=== PATIENT | female | born 1950 | race Caucasian/White ===

== ENCOUNTER → 2017-02-03 | Outpatient (CLI) | payer BC | END | disposition home or self-care (01) | DX: Z53.9 Procedure and treatment not carried out, unspecified reason (principal) ==

== ENCOUNTER → 2017-02-09 | Outpatient (CLI) | payer BC ==
[2017-02-09 15:23] LABS: EKG EKG PERFORMED
[2017-02-09 16:00] LABS: Basophils # (A) 0.1 k/uL (0-0.2); Basophils % (A) 1 %; CH 30.8; CHCM 34.9; Eosinophils # (A) 0.5 k/uL (0-0.7); Eosinophils % (A) 5 %; HCT 46.2 % (34.0-46.0); HDW 2.68; HGB 15.7 gm/dL (11.4-16.0); Luc # (Auto) 0.22; Luc % (Auto) 2; Lymphocytes # (A) 2.7 k/uL (1.0-4.8); Lymphocytes % (A) 25 %; MCH 30.1 pg (25.0-35.0); MCHC 33.9 g/dL (31.0-37.0); MCV 88.7 fL (80.0-100.0); Mean Platelet Volume 6.7; Monocytes # (A) 0.7 k/uL (0-1.0); Monocytes % (A) 6 %; Neutrophils # (A) 6.7 k/uL (1.3-7.7); Neutrophils % (A) 61 %; RBC 5.21 m/uL (3.80-5.40); RDW 13.5 % (11.5-15.5); WBC 10.9 k/uL (3.8-10.6); WBC (Perox) 10.62
[2017-02-09 16:14] LABS: Anion Gap 9 mmol/L; Blood Urea Nitrogen 20 mg/dL (7-17); Calcium 9.5 mg/dL (8.4-10.2); Carbon Dioxide 25 mmol/L (22-30); Chloride 104 mmol/L (98-107); Glucose 94 mg/dL (74-99); Non-African American GFR(MDRD) >60 (>60 ml/min/1.73 sqM); Potassium 4.2 mmol/L (3.5-5.1); Sodium 138 mmol/L (137-145)
== END | disposition home or self-care (01) ==
LOC: LABPAT 15:12
PROVIDERS: ATTEND Obstetrics & Gynecology
DX: Z01.810 Encounter for preprocedural cardiovascular examination (principal); Z01.812 Encounter for preprocedural laboratory examination
CPT/HCPCS: 80048; 85025; 86850; 86900; 86901; 93005

== ENCOUNTER 2017-02-18 07:24 | Day surgery (SDC) | payer BC ==
[2017-02-10 15:40] VITALS: BMI 28.3
[~2017-02-18 07:24] MED LIST: DEXAMETHASONE SOD PHOSPHATE 10 MG/ML 1 ML VIAL IV ONE; HYDROmorphone 1 MG/ML 1 ML SYRINGE IVP PRN; LIDOCAINE 1% 20 ML VIAL (10MG/ML) FOR IV START INTRADERMA PRN; ONDANSETRON 4 MG/2 ML VIAL IVP ONE; ceFAZolin 2 GM in SODIUM CHLORIDE 0.9% 100 ML IVPB ONE
--- NOTE | 2017-02-18 07:27 | P.HPOB ---
History of Present Illness H&P Date: 02/18/17 Chief Complaint: Mikey Vela has a grade II cystocele and is sched for an anterior repair of same. R/B/ A were reviewed in detail including risks to bladder/ureters, bleeding and infection. symptoms have progressively gotten worse for her over the last year and the prolpapse has become much more uncomfortable. we did discuss pessary placement but she would prefer a more permanent solution. all questions are answered for her at this time. Physical exam: Heart RRR, Lungs CTAB: abd soft, net +BS, ext without pain. pelvic exam as above. Ass: cystocele Plan Anterior repair Past Medical History Past Medical History: Hyperlipidemia, Hypertension Additional Past Medical History / Comment(s): varicose veins, hx kidney stone History of Any Multi-Drug Resistant Organisms: None Reported Past Surgical History: Orthopedic Surgery Additional Past Surgical History / Comment(s): cystoscopy for kidney stone, yen cataracts, end of index finger left hand reattached, surgery for rx left elbow Past Anesthesia/Blood Transfusion Reactions: No Reported Reaction Smoking Status: Never smoker - Past Family History Mother Family Medical History: No Reported History Medications and Allergies Home Medications Medication Instructions Recorded Confirmed Type Ascorbic Acid [Vitamin C] 500 mg PO DAILY 02/10/17 02/10/17 History Aspirin [Adult Low Dose Aspirin EC] 81 mg PO DAILY 02/10/17 02/10/17 History Atorvastatin [Lipitor] 40 mg PO HS 02/10/17 02/10/17 History Cholecalciferol [Vitamin D3] 5,000 unit PO DAILY 02/10/17 02/10/17 History Ubidecarenone [Co Q-10] 200 mg PO DAILY 02/10/17 02/10/17 History amLODIPine BESYLATE/BENAZEPRIL 1 cap PO DAILY 02/10/17 02/10/17 History [amLODIPine BESYLATE/BENAZEPRIL 10-20 mg] Allergies Allergy/AdvReac Type Severity Reaction Status Date / Time No Known Allergies Allergy Verified 02/10/17 15:31 Exam Osteopathic Statement: *. No significant issues noted on an osteopathic structural exam other than those noted in the History and Physical/Consult.
[2017-02-18] MEDS: LACTATED RINGERS 1,000 ML IV SCH ×2 (08:17→16:42)
[2017-02-18] MEDS ORDERED: MORPHINE SULFATE (PF) 0.3 MG/0.3 ML SYR ONE (09:28)
[2017-02-18] MEDS ORDERED: PROPOFOL 10 MG/ML 20 ML VIAL IV ONE (09:28)
[2017-02-18] MEDS ORDERED: fentaNYL (PF) 50 MCG/ML 2 ML AMP ONE (09:28)
[2017-02-18] MEDS ORDERED: LIDOCAINE 1% INJ 10MG/ML (20 ML MDV) ONE (09:28)
[2017-02-18] MEDS ORDERED: MIDAZOLAM 2 MG/2 ML VIAL ONE (09:28)
[2017-02-18] MEDS ORDERED: EPINEPHrine 1 MG in SODIUM CHLORIDE 0.9% 150 ML IV ONE (10:01)
[2017-02-18] MEDS ORDERED: LACTATED RINGERS 1,000 ML IV ONE ×2 (10:08→10:33)
[2017-02-18] MEDS ORDERED: KETOROLAC 30 MG/ML 1 ML VIAL IVP PRN ×2 (10:10→11:25)
[2017-02-18] MEDS ORDERED: SIMETHICONE 80 MG CHEWABLE PO PRN (10:10)
--- NOTE | 2017-02-18 10:15 | P.OP ---
Date of Procedure: 02/18/17 Preoperative Diagnosis: Vaginal prolapse Postoperative Diagnosis: Same Procedure(s) Performed: Anterior repair Anesthesia: ana KELLER Surgeon: Aashish Araujo Estimated Blood Loss (ml): 15 IV fluids (ml): 800 Urine output (ml): 15 Pathology: other (Vaginal mucosa) Condition: stable Disposition: floor Operative Findings: Grade 2 cystocele repaired Description of Procedure: Patient was taken to the operating suite where a spainal anesthetic was found be adequate. She was prepped and draped in normal sterile fashion placed in dorsal lithotomy position. Initially a speculum inserted in the vagina and the apex of the cystocele was identified and grasped between 2 Allis clamps dilute epinephrine solution was then injected subcuticularly to assist in hydrogen dissection and hemostasis. Once this was accomplished using a metastases scissors to undermine the tissue the cystocele was dissected up to approximately 170 below the urethra. Delineating the boundaries Allis clamps sharp and blunt dissection the cystocele was then done once this was accomplished cystocele was replaced in normal anatomical position and 4 interrupted Jesenia plication sutures were placed. Once this was accomplished excess vaginal close was trimmed off and the incision was closed with 0 Vicryl suture in a running locking fashion. Sponge, lap, needle counts were all correct 2. Once this was accomplished patient was taken to the recovery room in stable and satisfactory condition. Ramirez catheter was placed and vaginal packing was also placed. This was removed later tonight.
[2017-02-18] MEDS ORDERED: NALOXONE 0.4 MG/ML 1 ML VIAL IV PRN ×2 (11:03→11:25)
[2017-02-18] MEDS ORDERED: ONDANSETRON 4 MG/2 ML VIAL IVP PRN ×2 (11:03→11:25)
[2017-02-18] MEDS ORDERED: diphenhydrAMINE 50 MG/ML 1 ML VIAL IVP PRN (11:25)
[2017-02-18] MEDS: diphenhydrAMINE 50 MG/ML 1 ML VIAL IVP PRN (13:24)
[2017-02-18] MEDS: SENNOSIDES-DOCUSATE SODIUM 1 EACH TAB PO SCH (20:41)
[2017-02-18] MEDS ORDERED: ATORVASTATIN 40 MG TAB PO SCH (21:00)
[2017-02-19] MEDS: LACTATED RINGERS 1,000 ML IV SCH (01:55)
[2017-02-19] MEDS: diphenhydrAMINE 50 MG/ML 1 ML VIAL IVP PRN (01:57)
--- NOTE | 2017-02-19 08:09 | P.PN ---
Progress Note - Text Date:02/19 Time:710 Patient is status post ant repair. Patient seen this morning with VAS score of 2.c/o of pruritus, no c/o nausea/vomiting, comfortable and doing well today.
[2017-02-19] MEDS ORDERED: LISINOPRIL 20 MG TAB PO SCH (09:00)
[2017-02-19] MEDS ORDERED: ASPIRIN 81 MG PO SCH (09:00)
[2017-02-19] MEDS ORDERED: amLODIPine 10 MG TAB PO SCH (09:00)
--- NOTE | 2017-02-19 09:10 | P.DS ---
Providers Expected date of discharge: 02/19/17 Attending physician: Aashish Araujo Primary care physician: Stated None Hospital Course: Silas is doing very well postop day 1. She is ambulating, voiding, and she is tolerating her diet. She voices no complaints. She is anxious to go home. We'll have her follow up with me in 1 week's we can further discuss work limitations and when she may be able to return to work. All the discharge instructions were thoroughly reviewed and all questions are answered for her. Her blood pressures been running a little bit low will hold her blood pressure medicines at least for this morning and have her follow up with her PCP next week as well. Otherwise she voices no complaints and she is doing very well this time. Her regular, lungs clear, extremities without pain. Assessment postop day 1. Plan discharged home follow up with me in 1 week. Patient Condition at Discharge: Good Plan - Discharge Summary New Discharge Prescriptions: No Action amLODIPine BESYLATE/BENAZEPRIL [amLODIPine BESYLATE/BENAZEPRIL 10-20 mg] 1 cap PO DAILY Atorvastatin [Lipitor] 40 mg PO HS Cholecalciferol [Vitamin D3] 5,000 unit PO DAILY Ascorbic Acid [Vitamin C] 500 mg PO DAILY Ubidecarenone [Co Q-10] 200 mg PO DAILY Aspirin [Adult Low Dose Aspirin EC] 81 mg PO DAILY Discharge Medication List Ascorbic Acid [Vitamin C] 500 mg PO DAILY 02/10/17 [History] Aspirin [Adult Low Dose Aspirin EC] 81 mg PO DAILY 02/10/17 [History] Atorvastatin [Lipitor] 40 mg PO HS 02/10/17 [History] Cholecalciferol [Vitamin D3] 5,000 unit PO DAILY 02/10/17 [History] Ubidecarenone [Co Q-10] 200 mg PO DAILY 02/10/17 [History] amLODIPine BESYLATE/BENAZEPRIL [amLODIPine BESYLATE/BENAZEPRIL 10-20 mg] 1 cap PO DAILY 02/10/17 [History] Follow up Appointment(s)/Referral(s): Aashish Araujo DO [Doctor of Osteopathic Medicine] - 1 Week Activity/Diet/Wound Care/Special Instructions: No heavy lifting, limit stairs and driving, and pelvic rest. If any high temperatures, heavy bleeding, or severe pain call my office. Discharge Disposition: HOME SELF-CARE
[2017-02-19] MEDS: SENNOSIDES-DOCUSATE SODIUM 1 EACH TAB PO SCH (09:26)
[2017-02-19 10:36] VITALS: BP 114/67; PULSE 60; RESP 20; TEMP 98.1
== END 2017-02-19 10:38 | disposition home or self-care (01) ==
LOC: OR 07:24 → 6PED 10:08 → OR 02-19 10:38
PROVIDERS: ATTEND Obstetrics & Gynecology
DX: N81.10 Cystocele, unspecified (principal); N76.1 Subacute and chronic vaginitis; E78.5 Hyperlipidemia, unspecified; I10 Essential (primary) hypertension; Z79.82 Long term (current) use of aspirin; Z79.899 Other long term (current) drug therapy
CPT/HCPCS: 88302; 57240; J2250; J0171; J1200 ×2; J1100; J0690; J2405; J2001; J2274; J3010; J2704; 86850; 86900; 86901